=== PATIENT | male | born 1950 | race Caucasian/White ===

== ENCOUNTER 2023-03-01 13:13 | Emergency (ER) | payer MEDICARE | END 2023-03-01 14:03 | disposition home or self-care (01) | LOC: CSHERS 13:13 | DX: S52.511A Displaced fracture of right radial styloid process, initial encounter for closed fracture (principal); S00.81XA Abrasion of other part of head, initial encounter; M25.531 Pain in right wrist; I10 Essential (primary) hypertension; E11.9 Type 2 diabetes mellitus without complications; W19.XXXA Unspecified fall, initial encounter | CPT/HCPCS: 29125; 70450; 70486; 72125; 93005; 93010 ==